=== PATIENT | female | born 1980 | race Two or more races ===

== ENCOUNTER 2020-10-17 05:46 | Emergency (ER) | payer BC ==
[~2020-10-17] VITALS: Ht 165.1 cm; Wt 81.6 kg
[2020-10-17] MEDS ORDERED: ACETAMINOPHEN-CO5 ML (05:58)
== END 2020-10-17 11:31 | disposition home or self-care (01) ==
LOC: ER 05:46
DX: R55 Syncope and collapse (principal); R25.8 Other abnormal involuntary movements; T40.2X5A Adverse effect of other opioids, initial encounter; Y92.89 Other specified places as the place of occurrence of the external cause